=== PATIENT | female | born 2000 | race Caucasian/White ===

== ENCOUNTER 2019-08-08 15:21 | Emergency (ER) | payer OTHER ==
[2019-08-08 15:48] VITALS: BP 114/63
[2019-08-08 15:59] LABS: BASOPHILS % 0.1 % (0.0-1.5); NEUTROPHILS # 5.5 # k/uL (1.4-7.7)
--- NOTE | 2019-08-08 16:03 | ED Physician Documentation ---
General Adult - HISTORIAN Historian: patient - HPI Stated Complaint: anxiety Chief Complaint: General Adult Additional Information: 18 year old female states that she has moved back to [place] from [place]- she drove 20 hours straight with 6 cats in the car; she has been working 5 days a week and she use to work 2 or 3 days a week (she states that it is stressful). Patient c/o anxiety. States she was diagnosed in the past with graves and then went back and was told she didn't have graves disease; patient seems to ramble; prior to me leaving the room she asked "Can I lay down and rest?" Onset: days ago Timing: still present Severity: mild, moderate Modifying Factors: anxiety, stress - ROS CONST: no problems EYES/ENT: none CVS/RESP: none GI/: none MS/SKIN/LYMPH: none NEURO/PSYCH: tingling, numbness (to extremities- when she gets anxious/hyperventilates). denies: headache - PAST HX Past History: none Other History: none Surgeries/Procedures: none Immunizations: UTD Allergies/Adverse Reactions: Allergies Allergy/AdvReac Type Severity Reaction Status Date / Time No Known Allergies Allergy Verified 08/08/19 15:38 Home Medications: Ambulatory Orders Medication Instructions Recorded Hydroxyzine HCl [Atarax] 25 mg PO Q6H PRN #10 tablet 08/08/19 - SOCIAL HX Smoking History: non-smoker Alcohol Use: occasionally Drug Use: marijuana - FAMILY HX Family History: Yes (mom has anxiety, hypothyroid) - VITAL SIGNS Vital Signs: Vital Signs Temp Pulse Resp BP Pulse Ox 98.1 F 101 H 19 114/63 93 08/08/19 15:31 08/08/19 15:31 08/08/19 15:31 08/08/19 15:31 08/08/19 15:31 - REVIEWED ASSESSMENTS Nursing Assessment Reviewed: Yes Vitals Reviewed: Yes ED Results Lab/Radiology - Lab Results Lab Results: Lab Results 08/08/19 15:56 WBC 6.60 K/ul K/ul (4.00-12.00) RBC 4.28 M/ul M/ul (3.90-5.20) Hgb 13.7 g/dL g/dL (11.5-16.0) Hct 40.5 % % (34.5-46.5) MCV 95.0 fl fl (80.0-100.0) MCH 32.1 pg pg (28.0-34.0) MCHC 33.9 g/dL g/dL (30.0-36.0) RDW 10.3 % L % (11.3-14.3) Plt Count 200 K/mm3 K/mm3 (130-400) Neut % (Auto) 83.4 % H % (39.0-79.0) Lymph % (Auto) 11.5 % L % (16.0-50.0) Eagle % (Auto) 4.1 % % (0.0-11.0) Eos % (Auto) 0.9 % % (0.0-6.8) Baso % (Auto) 0.1 % % (0.0-1.5) Neut # (Auto) 5.5 # k/uL # k/uL (1.4-7.7) Lymph # (Auto) 0.8 # k/uL # k/uL (0.6-4.0) Eagle # (Auto) 0.3 # k/uL # k/uL (0.0-0.9) Eos # (Auto) 0.1 # k/uL # k/uL (0.0-0.6) Baso # (Auto) 0.0 # k/uL # k/uL (0.0-0.5) - Orders Orders: ED Orders Category Date Time Status CBC/PLATELET/DIFF Routine Lab 08/08/19 15:56 Completed CMP Routine Lab 08/08/19 15:56 Received TSH Stat Lab 08/08/19 15:56 Received UDS [DRUG SCREEN URINE MEDICAL ONLY] Routine Lab 08/08/19 Ordered URINALYSIS Routine Lab 08/08/19 Ordered General Adult Physical Exam - PHYSICAL EXAM GENERAL APPEARANCE: no distress EENT: eye inspection normal, ENT inspection normal, pharynx normal, HAYDER NECK: normal inspection, supple RESPIRATORY: breath sounds normal CVS: heart sounds normal ABDOMEN: soft, normal bowel sounds EXTREMITIES: normal range of motion NEURO: oriented X3, CN's nml as tested, motor nml, sensation nml Discharge Clincal Impression: Anxiety Prescriptions: Hydroxyzine HCl [Atarax] 25 mg PO Q6H PRN #10 tablet PRN Reason: Anxiety Referrals: Primary Doctor,No [Primary Care Provider] - 2 Days Additional Instructions: Take Hydroxyzine 25 mg 1/2-1 tab by mouth every 6 hours as needed for anxiety Increase water intake High protein diet Try to get at least 8 hours of sleep Call Clinic [phone] Saturday morning and establish care Condition: Good Disposition: 01 HOME, SELF-CARE Decision to Admit: NO Decision Time: 16:55
[2019-08-08 16:24] LABS: eGFR (Non-African) > 60
[2019-08-08 19:44] LABS: CANNABINOIDS NON NEGATIVE ng/mL (< 50); METHYLENEDIOXYMETHAMPHETAMINE NEGATIVE ng/mL (<500)
[2019-08-08 19:45] LABS: COLOR,URINE AMBER (YELLOW)
[2019-08-08 19:46] LABS: APPEARANCE,URINE CLEAR (CLEAR); OCCULT BLOOD,URINE 3+ (NEGATIVE)
== END 2019-08-08 16:56 | disposition home or self-care (01) ==
LOC: ED 15:21
DX: F41.9 Anxiety disorder, unspecified (principal)
CPT/HCPCS: 80053; 80377; 81002; 84443; 85025; 99281; 99283; G0481

== ENCOUNTER 2019-08-09 15:28 | Emergency (ER) | payer OTHER ==
[2019-08-09 15:47] VITALS: BP 122/67
--- NOTE | 2019-08-09 16:02 | ED Physician Documentation ---
General Adult - HISTORIAN Historian: patient - HPI Stated Complaint: increased anxiety Chief Complaint: General Adult Onset: days ago Timing: still present Further Comments: yes (18 year old female returns to ER today with complaints of anxiety; concerned that her medication has not resolved anxiety. Patient was seen in ER yesterday, work up completed and started on prn atarax. Patient denies suicidal thoughts, plan or ideation; denies homicidal thoughts or plans. Last took atarax at 10:30 am.) - ROS CONST: no problems EYES/ENT: none CVS/RESP: none GI/: none MS/SKIN/LYMPH: none NEURO/PSYCH: anxiety - PAST HX Past History: none Allergies/Adverse Reactions: Allergies Allergy/AdvReac Type Severity Reaction Status Date / Time No Known Allergies Allergy Verified 08/09/19 15:47 Home Medications: Ambulatory Orders Medication Instructions Recorded Hydroxyzine HCl [Atarax] 25 mg PO Q6H PRN #10 tablet 08/08/19 - SOCIAL HX Smoking History: cigarettes Drug Use: marijuana - FAMILY HX Family History: No - VITAL SIGNS Vital Signs: Vital Signs Temp Pulse Resp BP Pulse Ox 99.1 F 115 H 16 122/67 99 08/09/19 15:28 08/09/19 15:28 08/09/19 15:28 08/09/19 15:28 08/09/19 15:28 - REVIEWED ASSESSMENTS Nursing Assessment Reviewed: Yes Vitals Reviewed: Yes Progress - Progress Progress: ER record from 08/08/2019 reviewed. Patient does not appear anxious while in ER. Education on anxiety, treatment plan and follow up. Patient drove herself to ER. Will not add additional prn medication or start daily medication at this time. Instructed patient to establish counselor and primary care this week and make follow up appointments. Verbalized understanding. General Adult Physical Exam - PHYSICAL EXAM GENERAL APPEARANCE: [id number] N EENT: eye inspection normal, HAYDER RESPIRATORY: no resp distress, chest non-tender, breath sounds normal CVS: reg rate & rhythm, heart sounds normal, equal pulses, no murmur, no gallop, PMI nml, no JVD, no friction rub, 24 ABDOMEN: soft, no organomegaly, normal bowel sounds, no abdominal bruit, no distension BACK: normal inspection, no CVA tenderness SKIN: normal color, warm/dry, NR, INT, PAL, DR EXTREMITIES: non-tender, normal range of motion, no evidence of injury, no edema, J, [employer] NEURO: oriented X3, CN's nml as tested, motor nml, sensation nml, mood/affect nml Discharge Clincal Impression: Anxiety Referrals: Primary Doctor,No [Primary Care Provider] - 2 Days Additional Instructions: Rest - sleep 8-10 hours Eat a healthy diet Take your atarax on arrival home. Establish care with a primary care provider - call [phone] Establish a counselor - In [facility] [phone] In [place] [phone] Return to ER if you are having thoughts of harming yourself. It will take the atarax some time to improve your symptoms, in the mean time focus on a healthy lifestyle and establishing a primary care provider and a counselor. Condition: Stable Disposition: 01 HOME, SELF-CARE Decision to Admit: NO Decision Time: 16:01
== END 2019-08-09 16:09 | disposition home or self-care (01) ==
LOC: ED 15:28
DX: F41.9 Anxiety disorder, unspecified (principal)
CPT/HCPCS: 99281; 99282

== ENCOUNTER 2019-08-11 17:19 | Emergency (ER) | payer SELFPAY ==
--- NOTE | 2019-08-11 17:36 | ED Physician Documentation ---
General Adult - HISTORIAN Historian: patient - HPI Stated Complaint: out of anxiety meds Chief Complaint: General Adult Onset: days ago Timing: still present Severity: moderate Further Comments: yes (Pt is a 18 yo female dx'd with anxiety and rx'd hydroxyzine 12.5 to 25 mg q 6 h at a visit here one week ago. Pt has arranged for f/u with [facility] in [place] where she will be seen on Aug 25. Pt says the Hydroxyzine was very helpful but she was rx'd 10 tablets and has run out. Pt has new stressors having moved here from [place] and started a new job.) - ROS CONST: no problems EYES/ENT: none CVS/RESP: none GI/: none MS/SKIN/LYMPH: none NEURO/PSYCH: anxiety - PAST HX Past History: other (anxiety) Other History: none Allergies/Adverse Reactions: Allergies Allergy/AdvReac Type Severity Reaction Status Date / Time No Known Allergies Allergy Verified 08/11/19 17:36 Home Medications: Ambulatory Orders Medication Instructions Recorded Hydroxyzine HCl [Atarax] 25 mg PO Q6H PRN #10 tablet 08/08/19 - SOCIAL HX Smoking History: non-smoker - FAMILY HX Family History: No - VITAL SIGNS Vital Signs: Vital Signs Temp Pulse Resp BP Pulse Ox 122/67 08/09/19 16:11 - REVIEWED ASSESSMENTS Nursing Assessment Reviewed: Yes Vitals Reviewed: Yes Progress - Progress Progress: Rx Hydroxyzine 25 mg. Take one by mouth every 6 hours as needed for anxiety. Follow up at [facility] in [place] as arranged. General Adult Physical Exam - PHYSICAL EXAM GENERAL APPEARANCE: mild distress NECK: normal inspection, supple RESPIRATORY: no resp distress, chest non-tender, breath sounds normal CVS: reg rate & rhythm, heart sounds normal BACK: normal inspection SKIN: warm/dry, normal color EXTREMITIES: non-tender, normal range of motion, no evidence of injury NEURO: oriented X3, motor nml, sensation nml, other (mild anxiety) Discharge Clincal Impression: Anxiety Referrals: Primary Doctor,No [Primary Care Provider] - Condition: Good Disposition: 01 HOME, SELF-CARE Decision to Admit: NO Decision Time: 17:45
[2019-08-11 17:41] VITALS: BP 112/66
== END 2019-08-11 17:45 | disposition home or self-care (01) ==
LOC: ED 17:19
DX: F41.9 Anxiety disorder, unspecified (principal)
CPT/HCPCS: 99283; 99284

== ENCOUNTER 2019-08-19 15:53 | Emergency (ER) | payer SELFPAY ==
--- NOTE | 2019-08-19 16:04 | ED Physician Documentation ---
General Adult - HISTORIAN Historian: patient - HPI Stated Complaint: Needs a refill on vistaril Chief Complaint: Psychological Disorder Onset: other (on going ) Timing: still present Severity: mild Further Comments: yes (She was seen in the ER 08.11.19 and she was prescribed a med for anxiety . She was taking them more often than prescribed and she is out and her therapist appt is not until next week. She would like more meds) - ROS CONST: no problems - PAST HX Past History: other (anxiety ) Allergies/Adverse Reactions: Allergies Allergy/AdvReac Type Severity Reaction Status Date / Time No Known Allergies Allergy Verified 08/19/19 16:07 Home Medications: Ambulatory Orders Medication Instructions Recorded Hydroxyzine HCl [Atarax] 25 mg PO Q4 PRN 08/19/19 - SOCIAL HX Smoking History: non-smoker Alcohol Use: none Drug Use: none - FAMILY HX Family History: No - VITAL SIGNS Vital Signs: Vital Signs Temp Pulse Resp BP Pulse Ox 112/66 08/11/19 19:04 - REVIEWED ASSESSMENTS Nursing Assessment Reviewed: Yes Vitals Reviewed: Yes General Adult Physical Exam - PHYSICAL EXAM GENERAL APPEARANCE: no distress EENT: eye inspection normal, no signs of dehydration NECK: normal inspection RESPIRATORY: no resp distress, chest non-tender CVS: reg rate & rhythm, heart sounds normal ABDOMEN: soft BACK: normal inspection, no CVA tenderness SKIN: warm/dry EXTREMITIES: non-tender NEURO: oriented X3 Discharge Clincal Impression: Anxiety Referrals: Primary Doctor,No [Primary Care Provider] - 2 Days Comments: 1. hydroxizine 25 take 1 by mouth every 6 hours as needed for anxiety 2. Keep therapist appt 3. Initial care by a PCP - list given 4. Return to ER for any increased concerns Condition: Stable Disposition: 01 HOME, SELF-CARE Decision to Admit: NO Date of Decison to Admit: 08/19/19 Decision Time: 16:15
[2019-08-19 16:07] VITALS: BP 110/71
== END 2019-08-19 16:22 | disposition home or self-care (01) ==
LOC: ED 15:53
DX: F41.9 Anxiety disorder, unspecified (principal)
CPT/HCPCS: 99282